=== PATIENT | male | born 1970 | race Caucasian/White ===

== ENCOUNTER 2018-07-22 15:42 | Emergency (ER) | payer MEDICAID, OTHER ==
[~2018-07-22] VITALS: Ht 172.7 cm; Wt 90.0 kg
[2018-07-22 15:46] VITALS: Ht 172.7 cm; Wt 90.0 kg
[2018-07-22] MEDS ORDERED: ONDANSETRON 4 MG INJ IV STA (16:49)
[2018-07-22] MEDS ORDERED: SOD CHLORIDE 0.9% 1,000 ML IV STA ×2 (16:49→17:59)
--- NOTE | 2018-07-22 16:55 | ERD ---
ER Documentation Chief Complaint Chief Complaint FEELING PALPITATIONS , CHEST PAIN , LAST DRINK 2 HRS AGO HPI This is a 47-year-old male with a history of alcohol abuse. The patient indicates he has been drinking on a daily basis for several weeks. He states this morning upon awakening after he consumed some alcohol he started to develop palpitations. His last drink was 2 hours prior to arrival. He denies a headache. Contrary to the triage note he denies any chest pain. He stated it was the palpitations that brought him to the emergency department to be further evaluated. He said no fevers no shaking no chills. He denies any shortness of breath at rest or exertion. He has had no history of alcohol withdrawal seizur es. He has a history of hypertension but states he does not take any medications. He denies a headache. He has no changes in vision. He denies any hemoptysis hematemesis or melanotic stools. ROS All systems reviewed and are negative except as per history of present illness. Physical Exam Vitals Vital Signs Date Temp Pulse Resp B/P (MAP) Pulse Ox O2 O2 Flow FiO2 Time Delivery Rate 07/22/18 98.3 106 16 163/95 95 Room Air 17:28 (117) 07/22/18 98.1 121 18 204/107 97 15:46 (139) Physical Exam Constitutional:Well-developed. Well-nourished. HEENT:Normocephalic. Atraumatic with no nasal septal hematoma no he motympanum.Pupils were equal round reactive to light. Moist mucous membranes.No tonsillar exudates. Neck: No nuchal rigidity. No lymphadenopathy. No posterior cervical spine tenderness or step-offs. Respiratory: Not using accessory muscles of respiration.Lungs were clear to auscultation bilaterally. No rhonchi. No rales. No wheezing. Cardiovascular: Tachycardic with regular rhythm.No murmurs. No rubs were appreciated.S1, S2 normal. Distal pulses are palpable 2+ bilaterally. GI: Abdomen was soft. Nontender. Non Distended. No pulsatile abdominal masses or bruits. No rebound. No guarding. Bowel sounds were present and normal. Muscle skeletal: Full range of motion of both the upper and lower extremities bilaterally.Normal muscle tone.No assymetrical calf tenderness or swelling. Skin: No petechia, no purpura. No lesions on the palms or the soles of the feet. No maculopapular rash. NEURO: Patient was alert, awake, orientated x3.No facial droop. Gait observed and normal with no ataxia.Speech was slurred and patient smelled of alcohol. No focal neurological deficits. Result Diagram: 07/22/18 1706 07/22/18 1706 Results 24 hrs Laboratory Tests Test 07/22/18 17:06 White Blood Count 8.3 10^3/ul Red Blood Count 5.53 10^6/ul Hemoglobin 16.6 g/dl Hematocrit 47.5 % Mean Corpuscular Volume 85.9 fl Mean Corpuscular Hemoglobin 30.0 pg Mean Corpuscular Hemoglobin Concent 34.9 g/dl Red Cell Distribution Width 13.2 % Platelet Count 140 10^3/UL Mean Platelet Volume 9.1 fl Immature Granulocytes % 0.200 % Neutrophils % 65.1 % Lymphocytes % 26.8 % Monocytes % 7.7 % Eosinophils % 0.1 % Basophils % 0.1 % Nucleated Red Blood Cells % 0.0 /100WBC Immature Granulocytes # 0.020 10^3/ul Neutrophils # 5.4 10^3/ul Lymphocytes # 2.2 10^3/ul Monocytes # 0.6 10^3/ul Eosinophils # 0.0 10^3/ul Basophils # 0.0 10^3/ul Nucleated Red Blood Cells # 0.0 10^3/ul Prothrombin Time 12.8 Sec Prothrombin Time Ratio 1.0 INR International Normalized Ratio 0.95 Activated Partial Thromboplast Time 28.2 Sec Sodium Level 143 mmol/L Potassium Level 4.3 mmol/L Chloride Level 104 mmol/L Carbon Dioxide Level 24 mmol/L Anion Gap 15 Blood Urea Nitrogen 9 mg/dl Creatinine 0.71 mg/dl Est Glomerular Filtrat Rate mL/min > 60 mL/min Glucose Level 114 mg/dl Calcium Level 8.7 mg/dl Total Bilirubin 0.6 mg/dl Direct Bilirubin 0.00 mg/dl Indirect Bilirubin 0.6 mg/dl Aspartate Amino Transf (AST/SGOT) 68 IU/L Alanine Aminotransferase (ALT/SGPT) 47 IU/L Alkaline Phosphatase 78 IU/L Creatine Kinase 65 IU/L Creatine Kinase Index 1.4 Creatinine Kinase MB (Mass) 0.88 ng/ml Troponin I < 0.012 ng/ml B-Type Natriuretic Peptide 17 PG/ML Total Protein 8.4 g/dl Albumin 4.6 g/dl Globulin 3.80 g/dl Albumin/Globulin Ratio 1.21 Lipase 879 U/L Salicylates Level < 1.0 mg/dl Acetaminophen Level < 10.0 ug/ml Ethyl Alcohol Level 279.0 mg/dl Current Medications Medications Dose Sig/David Start Time Status Last (Trade) Ordered Route PRN Stop Time Admin Dose Reason Admin Sodium 1,000 ml @ Q1H STAT 07/22/18 DC 07/22/18 Chloride 1,000 mls/hr IV 16:49 07/22/18 17:07 17:48 Ondansetron 4 mg ONCE STAT 07/22/18 DC 07/22/18 HCl (Zofran IV 16:49 07/22/18 17:32 Inj) 16:52 Sodium 1,000 ml @ Q1H STAT 07/22/18 Chloride 1,000 mls/hr IV 17:59 07/22/18 18:58 10 mg ONCE STAT 07/22/18 DC Metoclopramid IV 17:59 07/22/18 e HCl 18:00 (Reglan) Lorazepam 1 mg ONCE ONCE 07/22/18 DC (Ativan) IV 18:00 07/22/18 18:01 Procedures/MDM THis Is a 47-year-old male that presented to the emergency department with physical exam findings consistent with alcohol intoxication. The patient was expressing palpitations and was tachycardic was placed in a chucking machine operator with continuous pulse oximetry. IV access was established by nursing staff. 12 Lead EKG tracing ordered and reviewed by myself showed: Tachycardic with heart rate of 113 bpm and no arrhythmia. NM interval normal. QRS duration normal. No ST segment elevation No ST segment depression. No changes consistent with acute ischemia. Patient lipase was 879 however the patient had no epigastric tenderness or physical exam findings to suggest acute pancreatitis. The patient received IV fluid resuscitation antiemetics and was also given IV Ativan to prevent impending withdrawal tremors. The patient said he felt comfortable being discharged home. He was with his sister who will be able to drive the patient home safely. The patient was discharged home in fair condition. They were instructed to return to the emergency department at any time if there was any worsening of their condition. The patient stated they would follow up with their PCP in the next 24-48 hours to initiate a suitable medication regimen under the care of their PCP as well as to allow their PCP to monitor any drug reactions. The patient was discharged home with prescriptions after they gave informed consent to the new medication. They were also fully informed by myself on the adverse effects and adverse drug interactions in order to provide adequate safeguards to prevent possible adverse reactions to medications. Departure Diagnosis: Primary Impression: Alcohol intoxication Complication of substance-induced condition: uncomplicated Qualified Codes: F10.920 - Alcohol use, unspecified with intoxication, uncomplicated Additional Impression: Palpitations Condition: RENE Ball MD Jul 22, 2018 16:55
[2018-07-22] MEDS ORDERED: METOCLOPRAMIDE 10 MG INJ IV STA (17:59)
[2018-07-22] MEDS ORDERED: LORAZEPAM 2 MG INJ IV ONE (18:00)
[2018-07-22] MEDS ORDERED: KETOROLAC 30 MG INJ IV STA (18:07)
[2018-07-22] MEDS ORDERED: LORA1TAB PO (19:41)
[2018-07-22 19:43] VITALS: BP 150/84; PULSE 99; RESP 17
== END 2018-07-22 20:14 | disposition home or self-care (01) ==
LOC: E/R 15:42
DX: F10.920 Alcohol use, unspecified with intoxication, uncomplicated (principal); R07.9 Chest pain, unspecified
CPT/HCPCS: 71045; 80053; 80307; 82550; 82553; 83690; 83880; 84484; 85025; 85610; 85730; 93005; 96361; 96374; 96375; J1885; J2060; J2405; J2765; J7030; Z7502

== ENCOUNTER 2018-08-04 14:43 | Emergency (ER) | payer MEDICAID ==
[~2018-08-04] VITALS: Ht 170.2 cm; Wt 86.7 kg
[~2018-08-04 14:43] MED LIST: LORA1TAB PO
[2018-08-04 14:53] VITALS: Ht 170.2 cm; Wt 86.7 kg
[2018-08-04] MEDS ORDERED: BELLADONNA/PHENOBARBITAL TAB PO STA (15:11)
[2018-08-04] MEDS ORDERED: LACTATED RINGER'S 1,000 ML IV STA (15:11)
[2018-08-04] MEDS ORDERED: LIDOCAINE/MYLANTA 40 ML BTL PO STA (15:11)
[2018-08-04] MEDS ORDERED: KETOROLAC 15 MG INJ IV STA (15:11)
[2018-08-04] MEDS ORDERED: ONDANSETRON 4 MG INJ IV STA (15:11)
--- NOTE | 2018-08-04 15:17 | ERD ---
ER Documentation Chief Complaint Chief Complaint CP, SOB, "I AM GOING THROUGH ALCOHOL WITHDRAWAL," LAST DRINK 2-HOURS AGO HPI This is a 47-year-old man with history of alcohol abuse presenting with alcohol withdrawal. Patient has sharp nonexertional nonradiating chest pain and palpitations and feel like he is withdrawing. He had very similar episode in this emergency department about 2 weeks ago. Patient denies blood per rectum or melena, no hematemesis, no exertional chest pain, no fevers or chills, no suicidal homicidal ideation. ROS All systems reviewed and are negative except as per history of present illness. Medications Home Meds Active Scripts Ondansetron Hcl* (Zofran*) 4 Mg Tablet, 4 MG PO Q8H PRN for NAUSEA AND/OR VOMITING, #30 TAB Prov:TIMOTHY HUNTER MD 08/04/18 Chlordiazepoxide* (Chlordiazepoxide*) 25 Mg Capsule, 25 MG PO Q8 PRN for CONTROL WITHDRAWAL SYMPTOMS, #10 CAP Prov:TIMOTHY HUNTER MD 08/04/18 Discontinued Scripts Lorazepam* (Lorazepam*) 1 Mg Tablet, 1 MG PO Q8H PRN for ANXIETY, #10 TAB Prov:SARKIS BAHENA DO 07/22/18 Allergies Allergies: Coded Allergies: No Known Allergy (Unverified , 08/04/18) PMhx/Soc History of Surgery: Yes (eye surgery) Anesthesia Reaction: No Hx Neurological Disorder: No Hx Respiratory Disorders: No Hx Cardiac Disorders: No Hx Psychiatric Problems: No Hx Miscellaneous Medical Probl: Yes (HTN) Hx Alcohol Use: Yes (ETOH abuse) Hx Substance Use: No Hx Tobacco Use: No Physical Exam Vitals Vital Signs Date Temp Pulse Resp B/P (MAP) Pulse Ox O2 O2 Flow FiO2 Time Delivery Rate 08/04/18 85 18 169/98 100 Room Air 17:35 (121) 08/04/18 99.4 109 16 204/102 98 14:53 (136) Physical Exam GENERAL: Well-developed, well-nourished, appears dehydrated, nauseous, intoxicated, afebrile HEENT: Moist mucous membranes, pink conjunctiva, no cervical spine tenderness or step-off deformities, no goiter, no jaundice or icterus, extraocular movements intact without pain. No submandibular induration, and no pharyngeal erythema NEURO: Alert and oriented 3, able to answer questions and follows commands, intoxicated, moving all extremities, pupils equal round reactive to light CARDIAC: Tachycardic and regular, no murmurs rubs or gallops LUNGS: Clear bilaterally no wheezing crackles or stridor ABDOMEN: Soft nontender, no guarding, no rigidity, no rebound, no psoas sign no obturator sign. Normoactive bowel sounds SKIN: Warm and dry to touch, no abrasions, contusions, or hematomas, no lacerations, no ecchymosis, no target lesions, and without ulcers EXTREMITIES: No clubbing cyanosis or edema, calves are bilaterally symmetrical, no Homans sign, no popliteal cord sign. Distal pulses equal and bilateral PSYCH: Normal affect without agitation or irritability Result Diagram: 08/04/18 1523 08/04/18 1523 Results 24 hrs Laboratory Tests Test 08/04/18 15:23 White Blood Count 5.8 10^3/ul Red Blood Count 5.39 10^6/ul Hemoglobin 16.3 g/dl Hematocrit 46.6 % Mean Corpuscular Volume 86.5 fl Mean Corpuscular Hemoglobin 30.2 pg Mean Corpuscular Hemoglobin Concent 35.0 g/dl Red Cell Distribution Width 13.2 % Platelet Count 99 10^3/UL Mean Platelet Volume 9.6 fl Immature Granulocytes % 0.300 % Neutrophils % 71.3 % Lymphocytes % 22.1 % Monocytes % 5.8 % Eosinophils % 0.0 % Basophils % 0.5 % Nucleated Red Blood Cells % 0.0 /100WBC Immature Granulocytes # 0.020 10^3/ul Neutrophils # 4.2 10^3/ul Lymphocytes # 1.3 10^3/ul Monocytes # 0.3 10^3/ul Eosinophils # 0.0 10^3/ul Basophils # 0.0 10^3/ul Nucleated Red Blood Cells # 0.0 10^3/ul Sodium Level 138 mmol/L Potassium Level 3.8 mmol/L Chloride Level 96 mmol/L Carbon Dioxide Level 24 mmol/L Anion Gap 18 Blood Urea Nitrogen 7 mg/dl Creatinine 0.76 mg/dl Est Glomerular Filtrat Rate mL/min > 60 mL/min Glucose Level 124 mg/dl Calcium Level 9.2 mg/dl Total Bilirubin 1.2 mg/dl Direct Bilirubin 0.00 mg/dl Indirect Bilirubin 1.2 mg/dl Aspartate Amino Transf (AST/SGOT) 158 IU/L Alanine Aminotransferase (ALT/SGPT) 124 IU/L Alkaline Phosphatase 70 IU/L Troponin I < 0.012 ng/ml Total Protein 9.1 g/dl Albumin 5.1 g/dl Globulin 4.00 g/dl Albumin/Globulin Ratio 1.27 Lipase 672 U/L Current Medications Medications Dose Sig/David Start Time Status Last (Trade) Ordered Route PRN Stop Time Admin Dose Reason Admin Lactated 1,000 ml @ Q1H STAT 08/04/18 DC 08/04/18 Ringer's 1,000 mls/hr IV 15:11 15:32 08/04/18 16:10 Ondansetron 4 mg ONCE STAT 08/04/18 DC 08/04/18 HCl (Zofran IV 15:11 15:32 Inj) 08/04/18 15:21 40 ml ONCE STAT 08/04/18 DC 08/04/18 Miscellaneous PO 15:11 15:33 Medication 08/04/18 15:21 (Gi Cocktail (2)) Belladonna/ 2 tab ONCE STAT 08/04/18 DC 08/04/18 Phenobarbital PO 15:11 15:33 () 08/04/18 15:21 Ketorolac 15 mg ONCE STAT 08/04/18 DC 08/04/18 Tromethamine IV 15:11 15:32 (Toradol) 08/04/18 15:21 Lorazepam 1 mg ONCE ONCE 08/04/18 DC 08/04/18 (Ativan) IV 15:30 15:33 08/04/18 15:31 Procedures/MDM IV line was established patient was placed on cardiac technologist rhythm strip revealed a narrow complex tachycardia at 110 bpm with upright P and T waves. Patient was afebrile EKG performed, read by me revealed a sinus tachycardia at 110 bpm, normal axis, narrow QRS complex, no concerning ST elevations or depressions noted. I administered 1 L normal saline IV, Toradol 15 mg IV, Zofran 4 mg IV, GI cocktail p.o., lorazepam 1 mg IV x1 for alcohol withdrawal CBC and electrolytes are normal, liver function tests were normal, troponin was negative Differential diagnoses considered, included but not limited to acute coronary syndrome, pulmonary embolism, aortic dissection, abdominal aortic aneurysm, sepsis, stroke, meningitis, encephalitis, pneumonia, appendicitis, cholecystitis, bowel obstruction, pyelonephritis, nephrolithiasis, cystitis, as well as metabolic, hematologic, and electrolyte abnormalities. As well as abscess, cellulitis, fractures, and dislocations. Patient feels much better at this time, and vital signs are normal, symptoms have improved. I did give strict instructions to return to the ED if symptoms continue or worsen, patient will otherwise follow-up with primary care physician. Patient understood instructions and agreed to plan. Disclaimer: Inadvertent spelling and grammatical errors are likely due to EHR/dictation software use and do not reflect on the overall quality of patient care. Also, please note that the electronic time recorded on this note does not necessarily reflect the actual time of the patient encounter. Departure Diagnosis: Primary Impression: Chest pain Chest pain type: unspecified Qualified Codes: R07.9 - Chest pain, unspecified Additional Impressions: Alcohol abuse Alcohol withdrawal Complication of substance-induced condition: with unspecified complication Qualified Codes: F10.239 - Alcohol dependence with withdrawal, unspecified Condition: TIMOTHY Sabillon MD Aug 04, 2018 15:17
[2018-08-04] MEDS ORDERED: LORAZEPAM 2 MG INJ IV ONE (15:30)
[2018-08-04] MEDS ORDERED: CHLO25CA9 PO (16:59)
[2018-08-04] MEDS ORDERED: ONDA4TAB8 PO (16:59)
[2018-08-04 17:35] VITALS: BP 169/98; PULSE 85; RESP 18
== END 2018-08-04 17:52 | disposition home or self-care (01) ==
LOC: E/R 14:43
DX: F10.239 Alcohol dependence with withdrawal, unspecified (principal); I10 Essential (primary) hypertension
CPT/HCPCS: 80053; 83690; 84484; 85025; J1885; J2060; J2405; J7120; Z7610; 36415; 93005; 96374; 96375

== ENCOUNTER 2018-08-23 21:39 | Emergency (ER) | payer MEDICAID ==
[~2018-08-23] VITALS: Ht 170.2 cm; Wt 87.0 kg
[~2018-08-23 21:39] MED LIST changes: +CHLO25CA9 PO; -LORA1TAB PO; +ONDA4TAB8 PO
[2018-08-23 21:45] VITALS: Ht 170.2 cm; Wt 87.0 kg
[2018-08-24] MEDS ORDERED: LORAZEPAM 2 MG INJ IV STA (00:36)
[2018-08-24] MEDS ORDERED: SOD CHLORIDE 0.9% 1,000 ML IV STA (00:36)
[2018-08-24] MEDS ORDERED: ONDANSETRON 4 MG INJ IV STA (00:51)
--- NOTE | 2018-08-24 01:42 | ERD ---
ER Documentation Chief Complaint Chief Complaint precordial pain&shaking 1.5 hr ago post drinking;been binge-drinking 2 wks HPI Is a 47-year-old male complains of shaking. He said he drinks daily and he said his last drink was 8 hours when he feels like he is withdrawing. Denies auditory or visual hallucinations. Denies any other current complaints. ROS All systems reviewed and are negative except as per history of present illness. Medications Home Meds Active Scripts Ondansetron Hcl* (Zofran*) 4 Mg Tablet, 4 MG PO Q8H PRN for NAUSEA AND/OR VOMITING, #30 TAB Prov:TIMOTHY HUNTER MD 08/04/18 Chlordiazepoxide* (Chlordiazepoxide*) 25 Mg Capsule, 25 MG PO Q8 PRN for CONTROL WITHDRAWAL SYMPTOMS, #10 CAP Prov:TIMOTHY HUNTER MD 08/04/18 Allergies Allergies: Coded Allergies: No Known Allergy (Unverified , 08/04/18) PMhx/Soc History of Surgery: Yes (eye surgery) Anesthesia Reaction: No Hx Neurological Disorder: No Hx Respiratory Disorders: No Hx Cardiac Disorders: No Hx Psychiatric Problems: No Hx Miscellaneous Medical Probl: Yes (HTN) Hx Alcohol Use: Yes (ETOH abuse, 12 beers/night) Hx Substance Use: No Hx Tobacco Use: No Smoking Status: Never smoker Physical Exam Vitals Vital Signs Date Temp Pulse Resp B/P (MAP) Pulse Ox O2 O2 Flow FiO2 Time Delivery Rate 08/23/18 99.0 117 20 202/98 98 21:45 (132) Physical Exam Const: No acute distress Head: Atraumatic Eyes: Normal Conjunctiva ENT: Normal External Ears, Nose and Mouth. Neck: Full range of motion. No meningismus. Resp: Clear to auscultation bilaterally Cardio: Regular rate and rhythm, no murmurs Abd: Soft, non tender, non distended. Normal bowel sounds Skin: No petechiae or rashes Back: No midline or flank tenderness Ext: No cyanosis, or edema Neur: Awake and alert Psych: Normal Mood and Affect Result Diagram: 08/24/184908/24/1849 Results 24 hrs Laboratory Tests Test 08/24/18 00:50 White Blood Count 4.7 10^3/ul Red Blood Count 4.98 10^6/ul Hemoglobin 15.4 g/dl Hematocrit 43.6 % Mean Corpuscular Volume 87.6 fl Mean Corpuscular Hemoglobin 30.9 pg Mean Corpuscular Hemoglobin Concent 35.3 g/dl Red Cell Distribution Width 14.6 % Platelet Count 128 10^3/UL Mean Platelet Volume 9.5 fl Immature Granulocytes % 0.400 % Neutrophils % 57.1 % Lymphocytes % 35.9 % Monocytes % 6.0 % Eosinophils % 0.2 % Basophils % 0.4 % Nucleated Red Blood Cells % 0.0 /100WBC Immature Granulocytes # 0.020 10^3/ul Neutrophils # 2.7 10^3/ul Lymphocytes # 1.7 10^3/ul Monocytes # 0.3 10^3/ul Eosinophils # 0.0 10^3/ul Basophils # 0.0 10^3/ul Nucleated Red Blood Cells # 0.0 10^3/ul Sodium Level 146 mmol/L Potassium Level 3.8 mmol/L Chloride Level 107 mmol/L Carbon Dioxide Level 23 mmol/L Anion Gap 16 Blood Urea Nitrogen 5 mg/dl Creatinine 0.60 mg/dl Est Glomerular Filtrat Rate mL/min > 60 mL/min Glucose Level 138 mg/dl Calcium Level 9.0 mg/dl Total Bilirubin 0.5 mg/dl Direct Bilirubin 0.00 mg/dl Indirect Bilirubin 0.5 mg/dl Aspartate Amino Transf (AST/SGOT) 109 IU/L Alanine Aminotransferase (ALT/SGPT) 86 IU/L Alkaline Phosphatase 59 IU/L Total Protein 8.6 g/dl Albumin 4.9 g/dl Globulin 3.70 g/dl Albumin/Globulin Ratio 1.32 Salicylates Level < 1.0 mg/dl Acetaminophen Level < 10.0 ug/ml Ethyl Alcohol Level 230.0 mg/dl Current Medications Medications Dose Sig/David Start Time Status Last (Trade) Ordered Route PRN Stop Time Admin Dose Reason Admin Sodium 1,000 ml @ Q1H STAT 08/24/18 DC 08/24/18 Chloride 1,000 mls/hr IV 00:36 00:58 08/24/18 01:35 Lorazepam 1 mg ONCE STAT 08/24/18 DC 08/24/18 (Ativan) IV 00:36 00:57 08/24/18 00:37 Ondansetron 4 mg ONCE STAT 08/24/18 DC 08/24/18 HCl (Zofran IV 00:51 00:57 Inj) 08/24/18 00:52 Procedures/MDM Medical decision makin-year-old male here with mild withdrawal. Treated with fluids and Ativan. Will be advised to follow-up with outpatient treatment centers. Return for worsening symptoms. Departure Diagnosis: Primary Impression: Alcohol abuse Additional Impression: Alcohol withdrawal Complication of substance-induced condition: uncomplicated Qualified Codes: F10.230 - Alcohol dependence with withdrawal, uncomplicated Condition: Stable TRICIA DONG Aug 24, 2018 01:42
[2018-08-24] MEDS ORDERED: CHLO25CA9 PO (01:43)
[2018-08-24 02:26] VITALS: BP 167/92; PULSE 105; RESP 19
== END 2018-08-24 02:26 | disposition home or self-care (01) ==
LOC: E/R 21:39
DX: F10.230 Alcohol dependence with withdrawal, uncomplicated (principal); I10 Essential (primary) hypertension
CPT/HCPCS: 36415; 80053; 80307; 85025; 93005; 96374; 96375; J2060; J2405; J7030; Z7502

== ENCOUNTER 2018-09-16 16:46 | Emergency (ER) | payer BC, MEDICAID ==
[~2018-09-16] VITALS: Ht 172.7 cm; Wt 85.1 kg
[~2018-09-16 16:46] MED LIST changes: +LORA1TAB PO; +METO10TA92 PO
[2018-09-16 17:03] VITALS: Ht 172.7 cm; Wt 85.1 kg
[2018-09-16] MEDS ORDERED: LORAZEPAM 2 MG INJ IV STA (17:28)
[2018-09-16] MEDS ORDERED: SOD CHLORIDE 0.9% 1,000 ML IV STA ×2 (17:28→19:14)
[2018-09-16] MEDS ORDERED: ONDANSETRON 4 MG INJ IV STA (17:48)
[2018-09-16] MEDS ORDERED: LORAZEPAM 2 MG INJ IV ONE (19:00)
--- NOTE | 2018-09-16 19:41 | ERD ---
ER Documentation Chief Complaint Chief Complaint chest palpitations, possible etoh, last drink 1100 HPI 47-year-old male with a history of alcoholism presenting with chest tightness, palpitations, and feeling of alcohol withdrawal. His last drink was earlier today. Denies any abdominal pain, shortness of breath, but does state that he feels nauseated. ROS All systems reviewed and are negative except as per history of present illness. Medications Home Meds Active Scripts Metoclopramide* (Reglan*) 10 Mg Tablet, 10 MG PO Q6 PRN for NAUSEA AND/OR VOMITING, #10 TAB Prov:JOAO VARMA MD 09/16/18 Lorazepam* (Lorazepam*) 1 Mg Tablet, 1-2 MG PO Q8 PRN for CONTROL WITHDRAWAL SYMPTOMS, #10 TAB Prov:JOAO VARMA MD 09/16/18 Chlordiazepoxide* (Chlordiazepoxide*) 25 Mg Capsule, 25 MG PO Q8 PRN for CONTROL WITHDRAWAL SYMPTOMS, #10 CAP Prov:TRICIA DONG 08/24/18 Ondansetron Hcl* (Zofran*) 4 Mg Tablet, 4 MG PO Q8H PRN for NAUSEA AND/OR VOMITING, #30 TAB Prov:TIMOTHY HUNTER MD 08/04/18 Discontinued Scripts Chlordiazepoxide* (Chlordiazepoxide*) 25 Mg Capsule, 25 MG PO Q8 PRN for CONTROL WITHDRAWAL SYMPTOMS, #10 CAP Prov:TIMOTHY HUNTER MD 08/04/18 Allergies Allergies: Coded Allergies: No Known Allergy (Unverified , 09/16/18) PMhx/Soc History of Surgery: Yes (eye surgery) Anesthesia Reaction: No Hx Neurological Disorder: No Hx Respiratory Disorders: No Hx Cardiac Disorders: No Hx Psychiatric Problems: No Hx Miscellaneous Medical Probl: Yes (HTN) Hx Alcohol Use: Yes (ETOH abuse, 12 beers/night) Hx Substance Use: No Hx Tobacco Use: No Smoking Status: Never smoker FmHx Family History: No diabetes Physical Exam Vitals Vital Signs Date Temp Pulse Resp B/P (MAP) Pulse Ox O2 O2 Flow FiO2 Time Delivery Rate 09/16/18 97.6 118 24 156/99 95 Room Air 21:02 (118) 09/16/18 125 22 168/100 96 Room Air 19:30 (122) 09/16/18 98.9 132 18 173/102 97 17:30 (125) 09/16/18 98.9 129 18 228/118 97 17:03 (154) Physical Exam Const: No acute distress Head: Atraumatic Eyes: Normal Conjunctiva ENT: Normal External Ears, Nose and Mouth. Neck: Full range of motion. No meningismus. Resp: Clear to auscultation bilaterally Cardio: Tachycardic with regular rhythm, no murmurs Abd: Soft, non tender, non distended. Normal bowel sounds Skin: No petechiae or rashes Back: No midline or flank tenderness Ext: No cyanosis, or edema Neur: Awake and alert, normal speech, oriented x3, cranial nerves intact, strength and sensations intact in all 4 extremities Psych: Normal Mood and Affect Result Diagram: 09/16/18173209/16/181732 Results 24 hrs Laboratory Tests Test 09/16/18 17:33 09/16/18 17:34 09/16/18 17:40 White Blood Count 5.6 10^3/ul Red Blood Count 5.18 10^6/ul Hemoglobin 16.2 g/dl Hematocrit 45.7 % Mean Corpuscular Volume 88.2 fl Mean Corpuscular Hemoglobin 31.3 pg Mean Corpuscular 35.4 g/dl Hemoglobin Concent Red Cell Distribution Width 14.0 % Platelet Count 86 10^3/UL Mean Platelet Volume 9.1 fl Immature Granulocytes % 0.200 % Neutrophils % % Segmented Neutrophils % (Manual) 58 % Lymphocytes % % Lymphocytes % (Manual) 38 % Monocytes % % Monocytes % (Manual) 4 % Eosinophils % % Basophils % % Nucleated Red Blood Cells % 0.0 /100WBC Immature Granulocytes # 0.010 10^3/ul Neutrophils # 10^3/ul Lymphocytes (Manual) 2.1 10^3/ul Lymphocytes # 10^3/ul Monocytes # 10^3/ul Monocytes # (Manual) 0.2 10^3/ul Eosinophils # 10^3/ul Basophils # 10^3/ul Nucleated Red Blood Cells # 10^3/ul Platelet Estimate DECREASED Sodium Level 144 mmol/L Potassium Level 3.8 mmol/L Chloride Level 105 mmol/L Carbon Dioxide Level 17 mmol/L Anion Gap 22 Blood Urea Nitrogen 8 mg/dl Creatinine 0.78 mg/dl Est Glomerular Filtrat > 60 mL/min Rate mL/min Glucose Level 109 mg/dl Calcium Level 8.8 mg/dl Total Bilirubin 0.8 mg/dl Direct Bilirubin 0.00 mg/dl Indirect Bilirubin 0.8 mg/dl Aspartate Amino Transf (AST/SGOT) 120 IU/L Alanine 80 IU/L Aminotransferase (ALT/SGPT) Alkaline Phosphatase 62 IU/L Troponin I < 0.012 ng/ml Total Protein 9.1 g/dl Albumin 5.1 g/dl Globulin 4.00 g/dl Albumin/Globulin Ratio 1.27 Ethyl Alcohol Level 269.0 mg/dl Bedside Glucose 101 mg/dL Urine Color BISI Urine Clarity SLIGHTLY CLOUDY Urine pH 5.0 Urine Specific [place] 1.018 Urine Ketones 1+ mg/dL Urine Nitrite NEGATIVE mg/dL Urine Bilirubin NEGATIVE mg/dL Urine Urobilinogen 1+ mg/dL Urine Leukocyte Esterase NEGATIVE Esequiel/ul Urine Microscopic RBC 1 /HPF Urine Microscopic WBC 3 /HPF Urine Squamous Epithelial Cells FEW /HPF Urine Bacteria FEW /HPF Urine Mucus MODERATE /HPF Urine Hemoglobin 1+ mg/dL Urine Glucose NEGATIVE mg/dL Urine Total Protein 2+ mg/dl Urine Opiates Screen NEGATIVE Urine Barbiturates NEGATIVE Urine Amphetamines Screen NEGATIVE Urine Benzodiazepines Screen NEGATIVE Urine Cocaine Screen NEGATIVE Urine Cannabinoids NEGATIVE Current Medications Medications Dose Sig/David Start Time Status Last (Trade) Ordered Route PRN Stop Time Admin Dose Reason Admin Sodium 1,000 ml @ Q1H STAT 09/16/18 DC 09/16/18 Chloride 1,000 mls/hr IV 17:28 09/16/18 17:46 18:27 Lorazepam 1 mg ONCE STAT 09/16/18 DC 09/16/18 (Ativan) IV 17:28 09/16/18 17:46 17:29 Ondansetron 4 mg ONCE STAT 09/16/18 DC 09/16/18 HCl (Zofran IV 17:48 09/16/18 17:56 Inj) 17:49 Lorazepam 2 mg ONCE ONCE 09/16/18 DC 09/16/18 (Ativan) IV 19:00 09/16/18 18:50 19:01 Sodium 1,000 ml @ Q1H STAT 09/16/18 DC 09/16/18 Chloride 1,000 mls/hr IV 19:14 09/16/18 19:18 20:13 Procedures/MDM EMERGENT LABS AND DIAGNOSTIC STUDIES: Lab Results above were reviewed and interpreted by me. CBC: Thrombocytopenia, likely secondary to liver disease from chronic alcoholism. No anemia or evidence of infection CMP: Mild acidosis, which I suspect is likely secondary to starvation ketoacidosis. No evidence of clinically significant electrolyte abnormality, acidosis, renal failure, hypoglycemia, liver disease, or biliary obstruction Lipase: no evidence of pancreatitis Troponin within normal limits, not indicative of cardiac ischemia Urine negative for infection, positive for ketones 12-lead EKG was interpreted by Lencho Varma MD: Sinus tachycardia with ventricular rate of 121 beats per minute Normal axis Normal intervals No acute ST or T wave changes suggestive of acute ischemia or STEMI. Initial Nursing notes reviewed. Previous Medical Records requested via the Electronic Health Record. EMERGENCY DEPARTMENT COURSE / MEDICAL DECISION MAKING: Patient is presenting with signs and symptoms of alcohol withdrawal with no evidence of delirium. He was tachycardic on arrival. Treated with IV fluids and IV Ativan. Labs consistent with chronic alcoholism. No other significant abnormalities. No evidence of ACS. After evaluation, patient does feel much better and is agreeable to to discharge home with Ativan prescription to be used as needed for alcohol withdrawal symptoms. I encouraged him to find a detox program for alcoholics. Patient understands. Patient's blood pressure was elevated (>120/80) but appears stable without evidence of hypertension emergency or urgency. The patient was counseled about the risks of hypertension and urged to pursue outpatient monitoring and therapy within a week with their primary care physician. Departure Diagnosis: Primary Impression: Alcohol withdrawal syndrome Complication of substance-induced condition: uncomplicated Qualified Codes: F10.230 - Alcohol dependence with withdrawal, uncomplicated Condition: Stable Patient Instructions: Alcohol Withdrawal Referrals: [facility] (PCP) Additional Instructions: Return to this facility if you are not improving as expected. JOAO VARMA MD Sep 16, 2018 19:41
[2018-09-16 21:02] VITALS: BP 156/99; PULSE 118; RESP 24
== END 2018-09-16 21:02 | disposition home or self-care (01) ==
LOC: E/R 16:46
DX: F10.230 Alcohol dependence with withdrawal, uncomplicated (principal); I10 Essential (primary) hypertension
CPT/HCPCS: 36415; 71045; 80053; 80307; 81001; 82962; 84484; 85025; 93005; 96374; 96375; 96376; 99285; J2060; J2405; J7030